=== PATIENT | female | born 1990 | race Caucasian/White ===

== ENCOUNTER 2016-07-03 11:03 | Inpatient (IN) | payer OTHER ==
[~2016-07-03] VITALS: Ht 160 cm; Wt 68.0 kg
[2016-08-03] MEDS ORDERED: OXYTOCIN 30 UNITS/LACT RINGERS 500 ML IV ONE (15:32)
[2016-08-03] MEDS ORDERED: RINGERS SOLUTION,LACTATED 1,000 ML IV PRN (15:32)
[2016-08-03] MEDS ORDERED: RINGERS SOLUTION,LACTATED 1,000 ML IV SCH (15:32)
[2016-08-03] MEDS ORDERED: METOCLOPRAMIDE HCL 5 MG/ML 2 ML VIAL IVP PRN (15:45)
[2016-08-03] MEDS ORDERED: CITRIC ACID/SODIUM CITRATE 30 ML SOLUTION UDCUP PO PRN (15:45)
[2016-08-03 15:49] VITALS: BP 123/74
[2016-08-03 16:03] LABS: BASOPHILS % (AUTO) 0.1 % (0.0-2.0); EOSINOPHILS % (AUTO) 0.4 % (1.0-6.0); HEMATOCRIT 34.2 % (36-46); HEMOGLOBIN 11.2 g/dL (12.0-16.0); LYMPHOCYTES # (AUTO) 1.3 K/uL (1.0-4.8); LYMPHOCYTES % (AUTO) 13.4 % (22.0-44.0); MEAN CORPUSCULAR HEMOGLOBIN 31.4 pg (26.0-34.0); MEAN CORPUSCULAR HGB CONC 32.8 G/dL (31.0-37.0); MEAN CORPUSCULAR VOLUME 96 fL (80-100); MONOCYTES # (AUTO) 0.8 K/uL (0.1-1.0); MONOCYTES % (AUTO) 7.8 % (2.0-9.0); NEUTROPHILS # (AUTO) 7.5 K/uL (1.8-7.7); NEUTROPHILS % (AUTO) 78.3 % (40.0-70.0); RED BLOOD CELL COUNT(AUTO) 3.58 MIL/uL (4.00-5.20); RED CELL DISTRIBUTION WIDTH 14.4 % (11.5-14.5); WHITE BLOOD COUNT (AUTO) 9.6 K/uL (4.5-11.0)
[2016-08-03] MEDS: FentaNYL CITRATE-PF 100 MCG/2 ML VIAL IVP PRN ×4 (16:13→18:26)
[2016-08-03] MEDS ORDERED: INFLUENZA VIRUS VACCINE QVS 2016-17 (3YR+)/PF 60 MCG/0.5 ML SYRINGE IM ONE (16:30)
[2016-08-03] MEDS ORDERED: FentaNYL CITRATE-PF 100 MCG/2 ML VIAL ONE (18:37)
[2016-08-03] MEDS ORDERED: ROPIVACAINE HCL 0.2% 100 ML ED ONE (18:48)
[2016-08-03] MEDS ORDERED: OXYGEN THERAPY IH SCH (20:00)
[2016-08-03] MEDS ORDERED: DiphenhydrAMINE HCL 50 MG/ML VIAL IVP PRN (20:00)
[2016-08-03] MEDS ORDERED: ONDANSETRON HCL 4 MG/2 ML VIAL IVP PRN (20:00)
[2016-08-03] MEDS ORDERED: NALBUPHINE HCL 10 MG/ML VIAL IVP PRN (20:00)
[2016-08-03] MEDS ORDERED: PROMETHAZINE HCL 12.5 MG in SODIUM CHLORIDE 0.9% 50 ML IV PRN (20:00)
[2016-08-03] MEDS ORDERED: ROPIVACAINE HCL 0.2% 100 ML IV PRN (20:00)
[2016-08-04] MEDS ORDERED: ACETAMINOPHEN/CODEINE 300-30 MG TABLET PO PRN ×2 (02:45)
[2016-08-04] MEDS ORDERED: LANOLIN 7 GM OINTMENT TP PRN (02:45)
[2016-08-04] MEDS: GLYCERIN/WITCH HAZEL LEAF 40 PADS JAR TP PRN (05:32)
[2016-08-04] MEDS: BENZOCAINE 20%/MENTHOL 56 GM SPRAY CANISTER TP PRN (05:32)
[2016-08-04] MEDS: IBUPROFEN 600 MG TABLET PO PRN (06:06)
[2016-08-04] MEDS: SENNA/DOCUSATE SODIUM 187-50 MG TABLET PO SCH ×2 (08:43→21:10)
[2016-08-04] MEDS: MAGNESIUM HYDROXIDE SUSPENSION 30 ML UDCUP PO SCH ×2 (08:43→21:10)
[2016-08-04] MEDS: HYDROCORTISONE 2.5% 30 GM CREAM TP PRN (21:25)
[2016-08-05] MEDS: IBUPROFEN 600 MG TABLET PO PRN (07:40)
[2016-08-05] MEDS: SENNA/DOCUSATE SODIUM 187-50 MG TABLET PO SCH (07:41)
[2016-08-05] MEDS: HYDROCORTISONE 2.5% 30 GM CREAM TP PRN (07:41)
[2016-08-05] MEDS: GLYCERIN/WITCH HAZEL LEAF 40 PADS JAR TP PRN (07:41)
[2016-08-05] MEDS: MAGNESIUM HYDROXIDE SUSPENSION 30 ML UDCUP PO SCH (07:41)
[2016-08-05] MEDS: BENZOCAINE 20%/MENTHOL 56 GM SPRAY CANISTER TP PRN (07:41)
[2016-08-05 09:03] LABS: BASOPHILS % (AUTO) 0.2 % (0.0-2.0); EOSINOPHILS % (AUTO) 0.8 % (1.0-6.0); HEMATOCRIT 25.5 % (36-46); HEMOGLOBIN 8.6 g/dL (12.0-16.0); LYMPHOCYTES # (AUTO) 1.9 K/uL (1.0-4.8); LYMPHOCYTES % (AUTO) 11.5 % (22.0-44.0); MEAN CORPUSCULAR HEMOGLOBIN 32.4 pg (26.0-34.0); MEAN CORPUSCULAR HGB CONC 33.9 G/dL (31.0-37.0); MEAN CORPUSCULAR VOLUME 96 fL (80-100); MONOCYTES % (AUTO) 6.3 % (2.0-9.0); NEUTROPHILS # (AUTO) 13.3 K/uL (1.8-7.7); NEUTROPHILS % (AUTO) 81.2 % (40.0-70.0); RED BLOOD CELL COUNT(AUTO) 2.66 MIL/uL (4.00-5.20); RED CELL DISTRIBUTION WIDTH 14.9 % (11.5-14.5); WHITE BLOOD COUNT (AUTO) 16.4 K/uL (4.5-11.0)
[2016-08-05] MEDS ORDERED: IBUP-1547 PO (09:12)
[2016-08-05] MEDS ORDERED: DSS100 PO (09:13)
== END 2016-08-05 10:00 | disposition home or self-care (01) | DRG 775 ==
LOC: UNDOADMOB 11:03 → 4S 11:03 → OBSVTOIN 08-03 14:30 → 4S 08-03 14:30
PROVIDERS: ADMIT Obstetrics & Gynecology; ATTEND Obstetrics & Gynecology
PROC: 10E0XZZ Delivery of Products of Conception, External Approach (ICD-10-PCS; principal; 2016-08-03)
PROC: 0KQM0ZZ Repair Perineum Muscle, Open Approach (ICD-10-PCS; 2016-08-03)
PROC: 10907ZC Drainage of Amniotic Fluid, Therapeutic from Products of Conception, Via Natural or Artificial Opening (ICD-10-PCS; 2016-08-03)
PROC: 3E0S3CZ (ICD-10-PCS; 2016-08-03)
PROC: 00HU33Z Insertion of Infusion Device into Spinal Canal, Percutaneous Approach (ICD-10-PCS; 2016-08-03)
DX: O70.1 Second degree perineal laceration during delivery (principal); Z37.0 Single live birth; Z3A.38 38 weeks gestation of pregnancy; Z90.49 Acquired absence of other specified parts of digestive tract
CPT/HCPCS: 86850; 86900; 86901; J2590; J2795; J3010; J7120